=== PATIENT | female | born 1995 | race Caucasian/White ===

== ENCOUNTER 2016-12-23 15:49 | Emergency (ER) | payer OTHER ==
[~2016-12-23] VITALS: Ht 162.6 cm; Wt 52.3 kg
[2016-12-23 15:50] VITALS: Ht 162.6 cm; Wt 52.3 kg
[2016-12-23] MEDS ORDERED: AMO500 PO (15:58)
[2016-12-23] MEDS ORDERED: IBUP-1542 PO (15:58)
--- NOTE | 2016-12-23 16:02 | ERD ---
ER Documentation Chief Complaint Date/Time DATE: 12/23/16 TIME: 16:01 Chief Complaint Sore throat with subjective fever x2 days. Pain with swallowing. HPI 21-year-old female comes in with sore throat, tactile fevers for the past 2 days. No cough, no vomiting, trouble swallowing, voice changes or drooling. ROS All systems reviewed and are negative except as per history of present illness. Medications Home Meds Active Scripts Ibuprofen* (Motrin*) 600 Mg Tab, 600 MG PO Q6, #30 TAB Prov:ZECHARIAH DE LA TORRE PA-C 12/23/16 Amoxicillin* (Amoxicillin*) 500 Mg Cap, 500 MG PO TID for 10 Days, CAP Prov:ZECHARIAH DE LA TORRE PA-C 12/23/16 Physical Exam Vitals Vital Signs Date Time Temp Pulse Resp B/P Pulse Ox O2 Delivery O2 Flow Rate FiO2 12/23/16 15:50 98.6 108 16 131/76 98 Physical Exam General: Well-developed, well-nourished. The patient appears in no acute distress. HEENT: Head is normocephalic, atraumatic. No scleral icterus. TMs normal, oropharynx is bilateral exudate, greater on the right side, uvula midline, no trismus, voice changes or drooling Neck: Supple. Nontender. Positive for lymphadenopathy Lungs: Clear to auscultation. Normal air movement. Heart: Regular rate and rhythm. S1 and S2 are normal. No murmurs, gallops, or rubs. Abdomen: Nondistended. Extremities: No clubbing or cyanosis. Moving extremities x 4. No weakness. Neurologic: Alert and oriented 3. No focal deficits. Normal speech and gait. Skin: Normal turgor. No rash or lesions. Procedures/MDM 21-year-old female comes in with history of sore throat, has exudative material , history of subjective fever, no history of cough and lymphadenopathy and was treated for acute pharyngitis, presumed strep pharyngitis. There is no evidence of any airway obstructive process, including an abscess. Patient will be given antibiotics and ibuprofen, and is to recheck with her primary care doctor. Return for any worsening or new symptoms. Departure Diagnosis: Primary Impression: Sore throat Condition: Good Patient Instructions: Pharyngitis, Strep (Presumed) Additional Instructions: Call your primary care doctor TOMORROW for an appointment during the next 1-2 days.See the doctor sooner or return here if your condition worsens before your appointment time. ZECHARIAH DE LA TORRE PA-C Dec 23, 2016 16:02
== END 2016-12-23 16:00 | disposition home or self-care (01) ==
LOC: E/R 15:49
DX: J02.9 Acute pharyngitis, unspecified (principal)
CPT/HCPCS: 99283

== ENCOUNTER 2017-01-05 20:26 | Emergency (ER) | payer OTHER ==
[~2017-01-05] VITALS: Ht 162.6 cm; Wt 57.5 kg
[~2017-01-05 20:26] MED LIST: AMO500 PO; IBUP-1542 PO
[2017-01-05 20:27] VITALS: Ht 162.6 cm; Wt 57.5 kg
--- NOTE | 2017-01-05 21:04 | ERD ---
ER Documentation Chief Complaint Date/Time DATE: 01/05/17 TIME: 20:48 Chief Complaint sore throat since tuesday; just had sore throat finished ATB already HPI 21-year-old female presents to emergency department for complaints of sore throat, irritation of the throat. Patient was seen in the emergency department on 12/24/2016, was diagnosed of acute bacterial pharyngitis, was given antibiotics, finished a dose of amoxicillin for 10 days, patient states that the swelling of her throughout and the exudate has resolved by the area continues to have irritation on affected area. Patient denies any stridor. Patient denies any shortness of breath. Patient is worried that the infection may have not resolved. Patient does not have any fever or chills. Patient does not have any other symptoms. ROS All systems reviewed and are negative except as per history of present illness. Medications Home Meds Active Scripts Ibuprofen* (Motrin*) 600 Mg Tab, 600 MG PO Q6, #30 TAB Prov:ZECHARIAH DE LA TORRE PA-C 12/23/16 Amoxicillin* (Amoxicillin*) 500 Mg Cap, 500 MG PO TID for 10 Days, CAP Prov:ZECHARIAH DE LA TORRE PA-C 12/23/16 Allergies Allergies: Coded Allergies: No Known Allergy (Unverified , 01/05/17) PMhx/Soc Medical and Surgical Hx: pt denies Medical Hx, pt denies Surgical Hx FmHx Family History: No coronary disease, No diabetes, No other Physical Exam Vitals Vital Signs Date Time Temp Pulse Resp B/P Pulse Ox O2 Delivery O2 Flow Rate FiO2 01/05/17 20:27 99.0 96 20 140/77 99 Physical Exam GENERAL: The patient is well developed and appropriate for usual state of health, in no apparent distress. HEENT: Atraumatic. Ears: Normal tympanic membrane, no erythema or bulging. No ear canal swelling. No ear discharge. Nose: normal nasal turbinates, no erythema or swelling. Normal nasal discharge. Throat: oropharynx clear. No tonsillar swelling or tonsillar exudates. No lymphadenopathy. CHEST: Clear to auscultation bilaterally. There are no rales, wheezes or rhonchi. HEART: Regular rate and rhythm. No murmurs, clicks, rubs or gallops. No S3 or S4. ABDOMEN: Soft, nontender and nondistended. Good bowel sounds. No rebound or guarding. No gross peritonitis. No gross organomegaly or masses. No Amaro sign or McBurney point tenderness. BACK: No midline or flank tenderness. EXTREMITIES: Equal pulses bilaterally. There is no peripheral clubbing, cyanosis or edema. No focal swelling or erythema. Full range of motion. Grossly neurovascularly intact. NEURO: Alert and oriented. Cranial nerves 2-12 intact. Motor strength in all 4 extremities with 5/5 strength. Sensation grossly intact. Normal speech and gait. SKIN: There is no apparent rash or petechia. The skin is warm and dry. HEMATOLOGIC AND LYMPHATIC: There is no evidence of excessive bruising or lymphedema. No gross cervical, axillary, or inguinal lymphadenopathy. Procedures/MDM Medical decision making: Patient sore throat nonspecific at this time, patient' s oropharyngeal wall is nonerythematous, no symptoms of any infection, no symptoms of any strep throat, and symptoms of any acute bacterial infection, no symptoms of mononucleosis. No stridor. No oral airway obstruction noted. Tonsils are normal. Low suspicion for any acute bacterial infection at this time. Most likely patient has resolved the infection previously treated. Patient is advised to ENT specialist if she continues to have the symptoms. Patient was advised to do saltwater gargles. Patient was advised to return to emergency department for worsening symptoms. Follow with primary care doctor in 2-3 days for reevaluation of symptoms. Departure Diagnosis: Primary Impression: Sore throat Condition: Stable Patient Instructions: Self-Care for Sore Throats Referrals: [facility] (PCP) [facility] YOU HAVE RECEIVED A MEDICAL SCREENING EXAM AND THE RESULTS INDICATE THAT YOU DO NOT HAVE A CONDITION THAT REQUIRES URGENT TREATMENT IN THE EMERGENCY DEPARTMENT. FURTHER EVALUATION AND TREATMENT OF YOUR CONDITION CAN WAIT UNTIL YOU ARE SEEN IN YOUR DOCTORS OFFICE WITHIN THE NEXT 1-2 DAYS. IT IS YOUR RESPONSIBILITY TO MAKE AN APPOINTMENT FOR FOLOW-UP CARE. IF YOU HAVE A PRIMARY DOCTOR --you should call your primary doctor and schedule an appointment IF YOU DO NOT HAVE A PRIMARY DOCTOR YOU CAN CALL OUR PHYSICIAN REFERRAL HOTLINE AT IF YOU CAN NOT AFFORD TO SEE A PHYSICIAN YOU CAN CHOSE FROM THE FOLLOWING [facility] [address] [facility]. [facility] [address] [facility] [facility] [address] [facility] [facility] [address] [facility]. [facility] [address] [facility]. [facility]. [address] [facility]. [facility] YOU HAVE RECEIVED A MEDICAL SCREENING EXAM AND THE RESULTS INDICATE THAT YOU DO NOT HAVE A CONDITION THAT REQUIRES URGENT TREATMENT IN THE EMERGENCY DEPARTMENT. FURTHER EVALUATION AND TREATMENT OF YOUR CONDITION CAN WAIT UNTIL YOU ARE SEEN IN YOUR DOCTORS OFFICE WITHIN THE NEXT 1-2 DAYS. IT IS YOUR RESPONSIBILITY TO MAKE AN APPOINTMENT FOR FOLOW-UP CARE. IF YOU HAVE A PRIMARY DOCTOR --you should call your primary doctor and schedule and appointment IF YOU DO NOT HAVE A PRIMARY DOCTOR YOU CAN CALL OUR PHYSICIAN REFERRAL HOTLINE AT . IF YOU CAN NOT AFFORD TO SEE A PHYSICIAN YOU CAN CHOSE FROM THE FOLLOWING [facility]: [facility] [address] [place] [address] [facility] [address] [place] [address] [facility] [address] [place] [address] ADRIEN MEHTA NP Jan 05, 2017 21:03
== END 2017-01-05 20:45 | disposition home or self-care (01) ==
LOC: E/R 20:26
DX: J02.9 Acute pharyngitis, unspecified (principal)
CPT/HCPCS: 99282